=== PATIENT | female | born 1955 | race Caucasian/White ===

== ENCOUNTER → 2018-08-05 13:40 | Outpatient (CLI) | payer OTHER | END | disposition home or self-care (01) | LOC: D.MRI 13:40 | DX: D32.0 Benign neoplasm of cerebral meninges (principal) ==

== ENCOUNTER → 2018-09-25 18:34 | Outpatient (CLI) | payer OTHER | END | disposition home or self-care (01) | LOC: D.MAMMO 15:30 | DX: Z12.31 Encounter for screening mammogram for malignant neoplasm of breast (principal) ==

== ENCOUNTER → 2018-09-30 17:07 | Outpatient (CLI) | payer OTHER | END | disposition home or self-care (01) | LOC: D.MAMMO 14:00 | DX: R92.8 Other abnormal and inconclusive findings on diagnostic imaging of breast (principal) ==